=== PATIENT | female | born 2000 | race Caucasian/White ===

== ENCOUNTER 2022-06-11 17:14 | Emergency (ER) | payer MEDICAID ==
[~2022-06-11] VITALS: Ht 160 cm; Wt 52.2 kg
[2022-06-11 17:42] LABS: HEMATOCRIT 41.9 % (31.2-41.9); MEAN CORPUSCULAR HEMOGLOBIN 29.8 uug (24.7-32.8); MEAN CORPUSCULAR VOLUME 89.9 fL (75.5-95.3); PLATELET COUNT (AUTO) 326 K/uL (179-408)
[2022-06-11 17:50] LABS: CARBON DIOXIDE 28 mmol/L (21-32); CHLORIDE 102 mmol/L (98-107); CREATININE 0.9 mg/dL (0.6-1.3); GLUCOSE 87 mg/dL (74-106); POTASSIUM 3.5 mmol/L (3.5-5.1); UREA NITROGEN, BLOOD 9 mg/dL (7-18)
--- NOTE | 2022-06-11 18:03 | NUR ---
Mold Parter assumes care: Patient is Aox4, blood was drawn by lab staff Jakob. EKG was done. Now, we are waiting for results and disposition. Patient is resting comfortably on gurney while using her personal electronic device, NAD.
--- NOTE | 2022-06-11 18:47 | NUR ---
Patientr denies any palpitations or chest pains. Patient discharged to home in stable condition with brisk steady gait. Written and verbal after care instructions given. Patient verbalized understanding and compliance of instructions. Stressed follow up with primary doctor and assistant teacher or return to ER for worsening s/s.
[2022-06-11 18:50] VITALS: BP 110/71
== END 2022-06-11 18:50 | disposition home or self-care (01) ==
LOC: ER 17:16
DX: R00.2 Palpitations (principal); R07.89 Other chest pain; Z79.3 Long term (current) use of hormonal contraceptives
CPT/HCPCS: 36415; 71045; 84484; 85025; 93005; A4663